=== PATIENT | female | born 1940 | race American Indian/Alaskan Native ===

== ENCOUNTER 2016-06-18 10:37 | Outpatient (CLI) | payer MEDICARE ==
--- NOTE | 2016-06-18 12:12 | Mammography Report ---
BILATERAL MAMMOGRAM: Compared to 01/31/15. CAD study utilized. FINDINGS: Predominance of adipose tissue bilaterally. No mass or microcalcification. Focal new 4 mm asymmetry upper posterior right breast. IMPRESSION: Focal new asymmetry upper posterior right breast. Recommend spot magnification and if necessary, sonographic examination. BI-RADS CATEGORY: 0 = Needs additional imaging evaluation ACR BI-RADS MAMMOGRAPHIC CODES: 0 = Needs additional imaging evaluation; 1 = Negative; 2 = Benign; 3 = Probably benign; 4 = Suspicious; 5 = Malignant; 6 = Known biopsy-proven malignancy COMMENT: 1. Dense breast tissue, i.e., adenosis, fibrocystic changes, etc., may obscure an underlying neoplasm. 2. Approximately 10% of cancers are not detected with mammography. 3. A negative mammography report should not delay biopsy if a clinically suspicious mass is present. COMMENT: Patient follow-up letters are generated in [employer].
== END 2016-06-18 10:38 | disposition home or self-care (01) ==
LOC: MAMMO 10:37
PROVIDERS: ATTEND Internal Medicine
DX: Z12.31 Encounter for screening mammogram for malignant neoplasm of breast (principal)
CPT/HCPCS: 77067; G0202

== ENCOUNTER 2016-09-04 09:59 | Outpatient (CLI) | payer MEDICARE ==
--- NOTE | 2016-09-04 12:39 | Mammography Report ---
Right mammogram: Additional compression imaging of the right breast performed based on recent screening exam raising question of asymmetry. The area of concern is no longer identified on the additional images and the findings appear generally unchanged from prior studies. Impression: No significant findings. Recommendation: Annual mammogram followup. BI-RADS CATEGORY: 1 = Negative ACR BI-RADS MAMMOGRAPHIC CODES: 0 = Needs additional imaging evaluation; 1 = Negative; 2 = Benign; 3 = Probably benign; 4 = Suspicious; 5 = Malignant; 6 = Known biopsy-proven malignancy COMMENT: 1. Dense breast tissue, i.e., adenosis, fibrocystic changes, etc., may obscure an underlying neoplasm. 2. Approximately 10% of cancers are not detected with mammography. 3. A negative mammography report should not delay biopsy if a clinically suspicious mass is present.
== END 2016-09-04 10:00 | disposition home or self-care (01) ==
LOC: US 09:59
PROVIDERS: ATTEND Internal Medicine
DX: R92.8 Other abnormal and inconclusive findings on diagnostic imaging of breast (principal)
CPT/HCPCS: G0206-RT